=== PATIENT | female | born 1970 | race Asian ===

== ENCOUNTER 2022-02-23 03:06 | Emergency (ER) | payer OTHER ==
[~2022-02-23] VITALS: Ht 160 cm; Wt 54.4 kg
[2022-02-23 03:08] VITALS: BP 111/74
--- NOTE | 2022-02-23 03:12 | NUR ---
PT OFFLOADED TO [facility]
--- NOTE | 2022-02-23 03:13 | NUR ---
52 YO F BIBA FROM HOME WITH C/C OF GENERAL WEAKNESS X3DAYS. REPORTS N/V/D X3DAYS. +COUGH. DENIES HX, RX AND ALLERGIES
--- NOTE | 2022-02-23 03:43 | NUR ---
PT TAKEN TO BED 7
--- NOTE | 2022-02-23 04:19 | NUR ---
52YR OLD FEMALE BIB EMS C/O ABD PAIN NAUSEA AND DIARRHEA. PT DENIES ANY VOMITING. PAIN LEVEL 5/10 SHARP. PT IS A&OX4 . HOB ELEVATED. RESP EVEN AND UNLABORED. XRAY AT BEDSIDE. NKDA NO MED HX
--- NOTE | 2022-02-23 04:23 | NUR ---
RAD AT BEDSIDE
--- NOTE | 2022-02-23 04:37 | NUR ---
Dr. Gutierrez examining patient.
--- NOTE | 2022-02-23 04:46 | NUR ---
BLOOD DRAWS GIVEN TO DIVISION FIELD INSPECTOR
[2022-02-23 05:28] LABS: BASOPHILS % (AUTO) 0.5 % (0.0-2.0); EOSINOPHILS % (AUTO) 0.6 % (0.0-4.0); HEMATOCRIT 36.5 % (36-48); HEMOGLOBIN 12.4 g/dL (12.0-16.0); LYMPHOCYTES % (AUTO) 15.2 % (20.5-51.1); MEAN CORPUSCULAR HEMOGLOBIN 30 pg (27-31); MEAN CORPUSCULAR HGB CONC 34 g/dL (33-37); MEAN CORPUSCULAR VOLUME 86.9 fL (80-94); MONOCYTES # (AUTO) 0.3 K/uL (0.8-1.0); MONOCYTES % (AUTO) 4.2 % (1.7-9.3); NEUTROPHILS # (AUTO) 5.3 K/uL (1.8-7.7); NEUTROPHILS % (AUTO) 79.5 % (42.2-75.2); PLATELET COUNT (AUTO) 254 K/uL (140-450); RED CELL DISTRIBUTION WIDTH 12.8 % (11.6-13.7); WHITE BLOOD COUNT (AUTO) 6.6 K/uL (4.8-10.8)
[2022-02-23 05:29] LABS: ALBUMIN 3.7 g/dL (3.4-5.0); ANION GAP 11.3 (8-16); ASPARTATE AMINOTRANSFERASE 19 U/L (15-37); CARBON DIOXIDE 28.6 mmol/L (21-32); CHLORIDE 108 mmol/L (98-107); CREATININE 0.6 mg/dL (0.6-1.3); GFR ARICAN-AMERICAN 134 mL/min (>90); GLUCOSE 108 mg/dL (74-106); POTASSIUM 3.9 mmol/L (3.5-5.1); SODIUM SERUM 144 mmol/L (136-145); TOTAL BILIRUBIN 0.3 mg/dL (0.0-1.0); UREA NITROGEN, BLOOD 11 mg/dL (7-18)
--- NOTE | 2022-02-23 05:34 | NUR ---
PT RESTING IN BED. PENDING LAB RESULTS AND DISPO
[2022-02-23] MEDS ORDERED: BEN10 PO (05:53)
[2022-02-23 06:00] VITALS: BP 99/53
--- NOTE | 2022-02-23 06:14 | NUR ---
Patient discharged with v/s stable. Written and verbal after care instructions given and explained. Patient alert, oriented and verbalized understanding of instructions. Ambulatory with steady gait. All questions addressed prior to discharge. ID band removed. Patient advised to follow up with PMD. Rx of bentyl given. Patient educated on indication of medication including possible reaction and side effects. Opportunity to ask questions provided and answered.
== END 2022-02-23 06:14 | disposition home or self-care (01) ==
LOC: MED 03:06
DX: R19.7 Diarrhea, unspecified (principal); R10.9 Unspecified abdominal pain; Z79.899 Other long term (current) drug therapy; Z98.890 Other specified postprocedural states
CPT/HCPCS: 36415; 71045; 80053; 84484; 85025; 87426; 87804; 93005; 99285; Q0092